=== PATIENT | female | born 1985 | race Caucasian/White ===

== ENCOUNTER → 2019-04-22 | Outpatient (CLI) | payer OTHER ==
[~2019-04-22] MED LIST: CITA-157 PO
[2019-04-22 14:01] LABS: PLATELET COUNT, AUTOMATED 197 K/uL (150-450)
[2019-04-22 14:34] LABS: LDL CHOLESTEROL 92 mg/dl
== END ==
LOC: LAB 13:45
PROVIDERS: ATTEND Emergency Medicine
DX: F41.9 Anxiety disorder, unspecified (principal)
CPT/HCPCS: 36415; 82040; 82247; 82310; 82374; 82435; 82465; 82565; 82607; 82947; 83718; 84075; 84132; 84155; 84295; 84443; 84450; 84460; 84478; 84520; 85025